=== PATIENT | female | born 1985 | race Caucasian/White ===

== ENCOUNTER 2016-05-05 11:23 | Emergency (ER) | payer OTHER ==
[~2016-05-05] VITALS: Ht 157.5 cm; Wt 47.4 kg
[~2016-05-05 11:23] MED LIST: ZOFRAN ODT4 MG PO
[2016-05-05 11:41] VITALS: BP 97/69
[2016-05-05 12:24] LABS: HEMATOCRIT 38.6 % (36.0-46.0); MCH 31.4 PG (29.0-34.0); MCV 89.8 FL (83-99); MEAN PLAT.VOLUME 11.1 uM^3 (9.5-12.4); PLATELET COUNT 189 K/uL (156-360); RBC DIS.WIDTH-CV 13.4 % (11.8-14.6); WHITE BLOOD COUNT 5.5 K/uL (4.1-10.2)
[2016-05-05 12:36] LABS: CHLORIDE 104 mEq/L (99-109); POTASSIUM 3.1 mEq/L (3.7-5.4); SODIUM 139 mEq/L (136-147)
[2016-05-05 12:38] LABS: GLUCOSE 86 mg/dL (70-99)
[2016-05-05 12:39] LABS: ANION GAP 10 MEQ/L (2-14)
[2016-05-05 12:40] LABS: TOTAL BILIRUBIN 0.4 mg/dL (0.0-1.0)
[2016-05-05 12:42] LABS: ALKALINE PHOSPHATASE 59 IU/L (3-129); GFR ESTIMATE (CALCULATED) > 59 mL/min/
[2016-05-05 12:43] LABS: UREA NITROGEN (BUN) 12 mg/dL (9-23)
[2016-05-05 12:54] LABS: QUANTITATIVE HCG < 4.0 MIU/ML
== END 2016-05-05 12:55 | disposition left against medical advice (07) ==
LOC: EME 11:23
DX: R11.10 Vomiting, unspecified (principal); Z53.21 Procedure and treatment not carried out due to patient leaving prior to being seen by health care provider
CPT/HCPCS: 80053; 81003; 84702; 85027

== ENCOUNTER 2016-07-06 21:21 | Emergency (ER) | payer OTHER ==
[~2016-07-06] VITALS: Ht 157.5 cm; Wt 48.7 kg
[2016-07-06 21:51] LABS: HEMATOCRIT 37.6 % (36.0-46.0); MCH 30.6 PG (29.0-34.0); MCHC 33.5 G/DL (30.0-36.0); MCV 91.3 FL (83-99); RBC DIS.WIDTH-SD 42.9 % (39-53); RED BLOOD COUNT 4.12 M/uL (3.80-5.20); WHITE BLOOD COUNT 7.9 K/uL (4.1-10.2)
[2016-07-06 22:28] LABS: HEMATOLOGY COMMENT 1 SN; PLATELET COUNT 250 K/uL (156-360)
[2016-07-06 22:35] LABS: COLOR RED ((YELLOW))
[2016-07-06 22:36] LABS: ADD MIUA? YES; BILIRUBIN NEGATIVE; BLOOD LARGE; GLUCOSE (STRIP) NEGATIVE; KETONES NEGATIVE; LEUKOCYTES NEGATIVE; NITRITE NEGATIVE; PROTEIN (STRIP) 300; RED BLOOD CELLS TNTC /HPF (0-5); UROBILINOGEN 0.2 MG/DL (0.2-1.0)
[2016-07-06 22:37] LABS: UCUL ADDED? YES
[2016-07-06 22:59] VITALS: BP 107/55
== END 2016-07-06 23:22 | disposition home or self-care (01) ==
LOC: EXP 21:21 → EME 21:21 → EXP 23:22
DX: N94.6 Dysmenorrhea, unspecified (principal)
CPT/HCPCS: 81003; 84702; 85027; 86850; 86900; 86901; 87086; 99281; 99283